=== PATIENT | male | born 1960 | race African-American/Black ===

== ENCOUNTER 2017-06-09 11:44 | Inpatient (IN) | payer MEDICARE, MEDICAID ==
[~2017-06-09] VITALS: Ht 198.1 cm; Wt 108.4 kg
[2017-06-09] MEDS ORDERED: SODIUM CHLORIDE 0.9% 1,000 ML IV ONE (12:15)
[2017-06-09 12:50] LABS: BASOPHILS % 0.6 % (0.0-2.0); EOSINOPHILS % 1.5 % (0.0-5.0); HEMATOCRIT. 36.7 % (42.0-52.0); HEMOGLOBIN. 11.8 g/dL (14.0-18.0); LYMPHOCYTES % 27.9 % (20.0-50.0); MEAN CORPUSCULAR HEMOGLOBIN 25.7 pg (28.0-32.0); MEAN CORPUSCULAR VOLUME 79.6 fL (80.0-94.0); MEAN PLATELET VOLUME 7.1 fl (7.4-10.4); MONOCYTES % 10.5 % (2.0-8.0); NEUTROPHILS % 59.5 % (40.0-76.0); PLATELET 241 x1000/uL (130-400); RED BLOOD CELL COUNT 4.61 mill/uL (4.7-6.1); RED CELL DISTRIBUTION WIDTH 13.2 % (11.6-14.6)
[2017-06-09 12:58] LABS: INR 1.1; PARTIAL THROMBOPLASTIN TIME 28.4 sec (23.4-31.0); PROTHROMBIN TIME 11.3 sec (9.4-11.6)
[2017-06-09 13:00] LABS: CHLORIDE 111 mEq/L (98-107)
[2017-06-09 13:04] LABS: CARBON DIOXIDE 24 mEq/L (21-32)
[2017-06-09 13:09] LABS: TROPONIN I 0.03 ng/mL (0.00-0.04)
[2017-06-09] MEDS ORDERED: CLONIDINE 0.1MG TABLET PO PRN (13:45)
[2017-06-09] MEDS ORDERED: ACETAMINOPHEN 325MG TABLET PO PRN (13:45)
[2017-06-09] MEDS ORDERED: ASPIRIN 325MG TABLET PO NR (13:45)
[2017-06-09] MEDS ORDERED: HYDROMORPHONE HCL/PF 2MG/ML CPJ IV PRN (13:45)
[2017-06-09] MEDS ORDERED: DOCUSATE SODIUM 100MG CAPSULE PO PRN (13:45)
[2017-06-09] MEDS ORDERED: ONDANSETRON HCL 4MG/2ML VIAL IV PRN (13:45)
[2017-06-09 15:50] LABS: TROPONIN I 0.04 ng/mL (0.00-0.04)
[2017-06-09 16:10] VITALS: BP 138/105
[2017-06-09] MEDS ORDERED: REGADENOSON 0.4 MG/5 ML IV NR (18:00)
[2017-06-09] MEDS ORDERED: LEVO50TA PO (18:42)
[2017-06-09] MEDS ORDERED: ASPI-1159 PO (18:42)
[2017-06-09] MEDS ORDERED: METO100T5 PO (18:42)
[2017-06-09] MEDS ORDERED: ROSU20TA PO (18:49)
[2017-06-09] MEDS ORDERED: IBUP-2028 PO (18:49)
[2017-06-09] MEDS ORDERED: CARI350T27 PO (18:49)
[2017-06-09] MEDS ORDERED: BIMA2.5D4 EACHEYE (18:49)
[2017-06-09] MEDS ORDERED: AMLO10TA80 PO (18:49)
[2017-06-09] MEDS ORDERED: LOSA100T14 PO (18:49)
[2017-06-09] MEDS ORDERED: CYCL5TAB PO (18:49)
[2017-06-09] MEDS ORDERED: HYDR-519 PO (18:49)
[2017-06-09] MEDS ORDERED: IBUPROFEN 600MG TABLET PO PRN (19:00)
[2017-06-09] MEDS ORDERED: CYCLOBENZAPRINE 10MG TABLET PO PRN (19:00)
[2017-06-09 19:02] LABS: CLARITY URINE CLEAR (CLEAR); COLOR URINE YELLOW (YELLOW); GLUCOSE URINE NEGATIVE (NEGATIVE); KETONES URINE NEGATIVE (NEGATIVE); LEUKOCYTE ESTERASE URINE NEGATIVE (NEGATIVE); NITRITE URINE NEGATIVE (NEGATIVE); OCCULT BLOOD URINE NEGATIVE (NEGATIVE); PH URINE 7.5 (4.5-8.0); PROTEIN URINE NEGATIVE (NEGATIVE); SPECIFIC GRAVITY URINE 1.015 (1.005-1.030); UROBILINOGEN URINE 0.2 E.U./dL (0.2-1.0)
[2017-06-09] MEDS: ENOXAPARIN 40MG/0.4ML SYR SUBCUT SCH (19:08)
[2017-06-09] MEDS: SODIUM CHLORIDE 0.45% 1,000 ML IV SCH (19:09)
[2017-06-09 19:15] LABS: *AMPHETAMINES SCREEN URINE NEGATIVE (NEGATIVE); *BARBITURATES SCREEN URINE NEGATIVE (NEGATIVE); *BENZODIAZEPINES SCREEN URINE NEGATIVE (NEGATIVE); *COCAINE SCREEN URINE NEGATIVE (NEGATIVE); CANNABINOID URINE SCREEN PRESUMTIVE POSITIVE (NEGATIVE); METHADONE URINE SCREEN NEGATIVE (NEGATIVE); OPIATES URINE SCREEN NEGATIVE (NEGATIVE); PHENCYCLIDINE URINE SCREEN NEGATIVE (NEGATIVE)
[2017-06-09 20:00] VITALS: BP 118/82
[2017-06-09] MEDS ORDERED: DORZ10DR9 EACHEYE (20:04)
[2017-06-09] MEDS ORDERED: NON FORMULARY PATIENT HOME MED EA XX SCH ×2 (20:30)
[2017-06-09] MEDS: ATORVASTATIN CALCIUM 40MG TABLET PO SCH (21:18)
[2017-06-09] MEDS: CARISOPRODOL 350 MG TABLET PO SCH (21:18)
[2017-06-09] MEDS: METOPROLOL TARTRATE 100MG TABLET PO SCH (21:19)
[2017-06-09] MEDS: LATANOPROST 0.005% OPHTH DROPS 2.5ML BOTHEYE SCH (22:25)
[2017-06-09] MEDS: DORZOLAM/TIMOLOL 2.23/0.68% OPHTH DROPS 10ML EACHEYE SCH (22:25)
[2017-06-09] MEDS: HYDROCODONE/ACETAMINOPHEN 10/325MG TABLET PO PRN (22:28)
[2017-06-10] VITALS: BP 153/81
[2017-06-10 01:04] LABS: TROPONIN I 0.09 ng/mL (0.00-0.04)
[2017-06-10 04:00] VITALS: BP 128/87
[2017-06-10] MEDS: SODIUM CHLORIDE 0.45% 1,000 ML IV SCH (06:11)
[2017-06-10 06:47] LABS: BASOPHILS % 0.8 % (0.0-2.0); EOSINOPHILS % 4.3 % (0.0-5.0); HEMATOCRIT. 38.1 % (42.0-52.0); HEMOGLOBIN. 12.2 g/dL (14.0-18.0); LYMPHOCYTES % 43.4 % (20.0-50.0); MEAN CORPUSCULAR HEMOGLOBIN 25.7 pg (28.0-32.0); MEAN CORPUSCULAR VOLUME 80.2 fL (80.0-94.0); MEAN PLATELET VOLUME 7.7 fl (7.4-10.4); MONOCYTES % 10.9 % (2.0-8.0); NEUTROPHILS % 40.6 % (40.0-76.0); PLATELET 230 x1000/uL (130-400); RED BLOOD CELL COUNT 4.75 mill/uL (4.7-6.1); RED CELL DISTRIBUTION WIDTH 13.1 % (11.6-14.6)
[2017-06-10 08:00] VITALS: BP 139/100
[2017-06-10 08:29] LABS: CARBON DIOXIDE 26 mEq/L (21-32); CHLORIDE 107 mEq/L (98-107); LDL CHOLESTEROL 130 mg/dL (5-100)
[2017-06-10 08:30] LABS: HDL CHOLESTEROL 38 mg/dL (40-59)
[2017-06-10] MEDS: DORZOLAM/TIMOLOL 2.23/0.68% OPHTH DROPS 10ML EACHEYE SCH ×3 (08:52→21:51)
[2017-06-10] MEDS: AMLODIPINE 10MG TABLET PO SCH (08:53)
[2017-06-10] MEDS: ASPIRIN 81MG TABLET PO SCH (08:53)
[2017-06-10] MEDS: LOSARTAN POTASSIUM 100 MG TABLET PO SCH (08:53)
[2017-06-10] MEDS: LEVOTHYROXINE SODIUM 100MCG TABLET PO SCH (08:53)
[2017-06-10] MEDS: METOPROLOL TARTRATE 100MG TABLET PO SCH ×2 (09:00→21:49)
[2017-06-10] MEDS ORDERED: DORZOLAM/TIMOLOL 2.23/0.68% OPHTH DROPS 10ML EACHEYE SCH (09:00)
[2017-06-10] MEDS ORDERED: REGADENOSON 0.4 MG/5 ML IV ONE (10:15)
[2017-06-10 12:00] VITALS: BP 126/92
[2017-06-10] MEDS: HYDROCODONE/ACETAMINOPHEN 10/325MG TABLET PO PRN ×2 (13:33→23:49)
[2017-06-10 16:00] VITALS: BP 149/93
[2017-06-10] MEDS: ENOXAPARIN 40MG/0.4ML SYR SUBCUT SCH (16:33)
[2017-06-10 20:00] VITALS: BP 149/83
[2017-06-10] MEDS: LATANOPROST 0.005% OPHTH DROPS 2.5ML BOTHEYE SCH (21:48)
[2017-06-10] MEDS: ATORVASTATIN CALCIUM 40MG TABLET PO SCH (21:49)
[2017-06-10] MEDS: CARISOPRODOL 350 MG TABLET PO SCH (21:49)
[2017-06-11] VITALS: BP 129/87
[2017-06-11 04:00] VITALS: BP 147/103
[2017-06-11] MEDS ORDERED: METOPROLOL TARTRATE 50MG TABLET PO SCH (09:00)
[2017-06-11] MEDS: LOSARTAN POTASSIUM 100 MG TABLET PO SCH (09:07)
[2017-06-11] MEDS: AMLODIPINE 10MG TABLET PO SCH (09:07)
[2017-06-11] MEDS: ASPIRIN 81MG TABLET PO SCH (09:07)
[2017-06-11] MEDS: LEVOTHYROXINE SODIUM 100MCG TABLET PO SCH (09:07)
[2017-06-11] MEDS: DORZOLAM/TIMOLOL 2.23/0.68% OPHTH DROPS 10ML EACHEYE SCH (09:13)
[2017-06-11 11:17] VITALS: BP 147/103
== END 2017-06-11 12:20 | disposition home or self-care (01) | DRG 309 ==
LOC: EDBEDREQ 12:27 → EDBEDREQTM 12:27 → ER 12:34 → 7WST 12:35 → ENRESERV 14:14
PROVIDERS: ADMIT Internal Medicine Nephrology; ATTEND Internal Medicine Nephrology
DX: I47.1 Supraventricular tachycardia (principal); E46 Unspecified protein-calorie malnutrition; E05.00 Thyrotoxicosis with diffuse goiter without thyrotoxic crisis or storm; I10 Essential (primary) hypertension; I48.0 Paroxysmal atrial fibrillation; D64.9 Anemia, unspecified; E03.9 Hypothyroidism, unspecified; E78.5 Hyperlipidemia, unspecified; F17.210 Nicotine dependence, cigarettes, uncomplicated; G43.909 Migraine, unspecified, not intractable, without status migrainosus; G47.33 Obstructive sleep apnea (adult) (pediatric); F14.90 Cocaine use, unspecified, uncomplicated; H40.9 Unspecified glaucoma; H54.0 Blindness, both eyes; K21.9 Gastro-esophageal reflux disease without esophagitis; K59.00 Constipation, unspecified; M71.21 Synovial cyst of popliteal space [Baker], right knee; Z79.82 Long term (current) use of aspirin; Z79.899 Other long term (current) drug therapy; Z82.41 Family history of sudden cardiac death; Z98.49 Cataract extraction status, unspecified eye; Z82.49 Family history of ischemic heart disease and other diseases of the circulatory system; Z68.27 Body mass index [BMI] 27.0-27.9, adult; Z79.1 Long term (current) use of non-steroidal anti-inflammatories (NSAID)
CPT/HCPCS: 36415; 71010; 78452; 78582; 80053; 80061; 80305; 81003; 82550; 83690; 84443; 84484; 85025; 85610; 85730; 87040; 87086; 93005; 93017; 93306; 93970; 99285; A9500; A9558; J1650; J2785; J7030

== ENCOUNTER → 2019-06-18 | Day surgery (SDC) | payer MEDICARE, MEDICAID ==
[~2019-06-18] MED LIST: BIMA2.5D4 EACHEYE; CARI350T27 PO; CYCL5TAB PO; DORZ10DR9 EACHEYE; ESOM40CA MT; HYDR-519 PO; IBUP-2028 PO; LEVO100T9 PO; LEVO50TA PO; LIDOCAINE HCL 1% 20ML VIAL (Pyxis) INJ ONE; LOSA100T32 PO; METO25TA6 PO; NALO25TA PO; ROSU20TA2 PO; SODIUM BICARBONATE 4% (2.4MEQ) 5ML VIAL IV ONE; TELM80TA8 MT
== END | disposition home or self-care (01) ==
LOC: RAD 12:34
PROVIDERS: ATTEND Family Medicine Adult Medicine
DX: E04.1 Nontoxic single thyroid nodule (principal); F17.210 Nicotine dependence, cigarettes, uncomplicated; Z79.899 Other long term (current) drug therapy; Z72.89 Other problems related to lifestyle; Z82.49 Family history of ischemic heart disease and other diseases of the circulatory system; Z83.3 Family history of diabetes mellitus
CPT/HCPCS: 10005; J3490

== ENCOUNTER 2021-01-26 02:28 | Emergency (ER) | payer MEDICARE, MEDICAID ==
[~2021-01-26] VITALS: Ht 193 cm; Wt 100.0 kg
[~2021-01-26 02:28] MED LIST changes: -LIDOCAINE HCL 1% 20ML VIAL (Pyxis) INJ ONE; -NALO25TA PO; +NALO25TA4 PO; -SODIUM BICARBONATE 4% (2.4MEQ) 5ML VIAL IV ONE
[2021-01-26 04:30] VITALS: BP 157/101
== END 2021-01-26 04:45 | disposition home or self-care (01) ==
LOC: ER 02:28
DX: T65.891A Toxic effect of other specified substances, accidental (unintentional), initial encounter (principal); F17.290 Nicotine dependence, other tobacco product, uncomplicated; F12.10 Cannabis abuse, uncomplicated; I10 Essential (primary) hypertension; Z79.899 Other long term (current) drug therapy; Z98.890 Other specified postprocedural states; Y92.9 Unspecified place or not applicable
CPT/HCPCS: 93005; 99283; 99406